=== PATIENT | female | born 2000 | race Two or more races ===

== ENCOUNTER 2019-05-05 12:13 | Emergency (ER) | payer OTHER ==
[~2019-05-05] VITALS: Ht 167.6 cm; Wt 81.6 kg
[2019-05-05 13:08] LABS: Urine Bacteria FEW /hpf (None Seen); Urine Blood 2+ /uL (Negative); Urine Hyaline Cast FEW /lpf (0 - 2); Urine Mucus FEW (None Seen); Urine Specific Gravity 1.031 (1.001-1.035); Urine WBC 3 /hpf (0 - 5)
[2019-05-05 13:29] LABS: Eosinophils # (auto) 0.1 uL; Eosinophils % (auto) 0.3 % (0.0-7.0); Lymphocytes # (auto) 1.4 uL; Mean Corpuscular Volume 88.9 fL (80.0-100.0); Red Cell Distribution Width 13.2 % (11.8-14.3)
[2019-05-05 13:31] LABS: Basophils # (auto) 0.2 uL; Basophils % (auto) 1.2 % (0.0-2.0); Hematocrit 47.4 % (36.0-46.0); Hemoglobin 16.2 g/dL (12.2-16.2); Lymphocytes % (auto) 6.9 % (10.0-50.0); Mean Corpuscular Hemoglobin 30.4 pg (28.0-32.0); Mean Corpuscular Hgb Conc. 34.2 g/dL (32.0-36.0); Monocytes # (auto) 1.1 uL; Monocytes % (auto) 5.3 % (0.0-12.0); Neutrophils # (auto) 17.3 uL; Neutrophils % (auto) 86.3 % (37.0-80.0); Platelet Count (auto) 467 10^3/uL (140-450); Red Blood Cells 5.34 10^6/uL (4.0-5.20)
[2019-05-05 13:48] LABS: Albumin 4.7 g/dL (3.4-5.0); Calcium 10.3 mg/dL (8.5-10.1); Potassium 3.9 mmol/L (3.5-5.1)
[2019-05-05 13:51] LABS: BUN/Creatinine Ratio 14.3; Bilirubin, Total 0.5 mg/dL (0.2-1.0); Total Protein 9.4 g/dL (6.4-8.2)
[2019-05-05 15:50] VITALS: BP 116/85
== END 2019-05-05 16:09 | disposition home or self-care (01) ==
LOC: ER 12:13
DX: N39.0 Urinary tract infection, site not specified (principal); R19.7 Diarrhea, unspecified; R11.2 Nausea with vomiting, unspecified
CPT/HCPCS: 36415; 74176; 80053; 81001; 81025; 83690; 85025

== ENCOUNTER → 2020-05-20 | Emergency (ER) | payer MEDICAID, OTHER ==
[~2020-05-20] VITALS: Ht 167.6 cm; Wt 86.2 kg
[2020-05-20 15:47] VITALS: BP 130/83
== END | disposition home or self-care (01) ==
LOC: ER 14:59
DX: J02.9 Acute pharyngitis, unspecified (principal)